=== PATIENT | male | born 1955 | race Caucasian/White ===

== ENCOUNTER 2017-09-04 06:48 | Observation (INO) | payer BC ==
[~2017-09-04] VITALS: Ht 185.4 cm; Wt 100.9 kg
--- NOTE | ~2017-09-04 | P ---
[facility] [place] [address] PROCEDURE REPORT Name: MARVIN OLIVEROS Room #: 204-P [facility] Monae M.R.#: [id number] Admission: 09/04/17 Attend Phys: Jose Riley MD Discharge: 09/05/17 Date of : 57 Report #: [id number] THIS REPORT FOR: //name// CC: [facility] physician/PCP Jose SMITH PREOPERATIVE DIAGNOSIS: Supraventricular tachycardia. POSTOPERATIVE DIAGNOSIS: Left-sided atrial tachycardia. PROCEDURES PERFORMED: 1. SVT ablation, CPT code 42032. 2. EP left atrial pacing and recording, CPT code 95856. 3. Intracardiac echocardiogram, CPT code 86774. 4. 3D mapping, 91899. 5. Second pathway ablation, CPT code 82157. 6. Arterial line placement, CPT code 00262. 7. Transseptal puncture, 88717. 8. Mapping of tachycardia, 83092. PROCEDURE: The patient underwent informed consent where we discussed the details of the procedure including the risks, which include, but are not limited to bleeding, vascular damage, cardiac perforation as well as stroke or IL. He understood these risks and is willing to proceed. As such, the patient was brought to the EP laboratory in a fasting and sedated state and prepped and draped in a sterile fashion. I injected lidocaine to the bilateral femoral groin regions and obtained access to the bilateral femoral veins and placed sheaths using the modified Seldinger technique. I placed an 8-Welsh and 6-Welsh short sheath in the right femoral vein and a 7-Welsh and 6-Welsh short sheath in the left femoral vein. Under fluoroscopy, I placed 3 quadripolar catheters at the HRA, His, and RV positions and a decapolar catheter in the coronary sinus. Of note, it was difficult to maintain the decapolar into the coronary sinus as it would flip out on occasion. At baseline, the patient was in sinus rhythm with a sinus cycle length of 710 milliseconds, GA interval 125 milliseconds, QRS duration 95 milliseconds, QT interval 380 milliseconds, AH interval 75 milliseconds, and HV interval of 370 milliseconds. With atrial burst pacing, SVT was induced with a tachycardia cycle length of 330 milliseconds and septal VA time of 200 milliseconds. I attempted to perform ventricular entrainment and the tachycardia would not entrain. In fact with ventricular pacing, I could easily dissociate from the V. This appeared to be an atrial tachycardia. Of note, with atrial burst pacing, the patient did have 2 episodes of atrial fibrillation that required 100 joules cardioversion times 2. I was able to easily re-induce the tachycardia. I then exchanged my HRA catheter for a 4-mm ablation catheter. I then performed [facility] [address] [place] [address] PROCEDURE REPORT Name: RENATOMARVIN CORONA Room #: 204-P AURELIA Licona MSrinivasanRSrinivasan#: [id number] Admission: 09/04/17 Attend Phys: Jose Riley MD Discharge: 09/05/17 Date of : 57 Report #: [id number] an activation map of the tachycardia. It appeared that the earliest site of atrial activation was within the coronary sinus. However, the earliest atrial signal compared to the surface P-wave was 20 milliseconds late. As such, it appeared that this may be a left-sided atrial tachycardia. I therefore obtained access to the right femoral artery times 1 and placed a 5-Welsh short sheath. I then obtained access to the left femoral vein again and placed a 9-Welsh short sheath and an ice catheter into the right atrium. I created a detailed 3D geometry using CARTO sound. The patient was then systemically heparinized and I performed a transseptal using an SL1 sheath and a Medrio needle. Once in the left atrium, I used a Lasso catheter to create an activation map. It appeared that the earliest site of activation was at 7-8 o'clock along the mitral annulus. I found the earliest site and performed ablation at 50 lee 55 degrees with my 4-mm ablation catheter. There was termination of the tachycardia, but I could re-induce the same tachycardia at a slower rate of 360 milliseconds. I therefore decided to look into the coronary sinus and based on the activation map, it appeared that the site of earliest atrial activity was within the coronary sinus and I performed ablation at 30 lee and 50 degrees. I performed a total of 2 ablation lesions and I could no longer induce the atrial tachycardia. Post-ablation, I performed additional testing and I induced a second atrial tachycardia, which had a distinct biphasic P-wave morphology in the inferior leads. I therefore created a detailed 3D activation map of this tachycardia and this appeared to be arising in the left atrium along the septum just inferior to the right superior pulmonary vein. Catheter manipulation at this site, which demonstrated the earliest activation would result in termination. I therefore performed ablation along this region where there was some evidence of fractionated potentials. I homogenized this zone. I then performed additional testing and this tachycardia was rendered noninducible. We performed additional EP study and I could no longer induce either of the atrial tachycardias. Post-ablation, the patient remained in sinus rhythm with a sinus cycle length of 745 milliseconds, GA interval 160 milliseconds, AH interval 97 milliseconds, and HV interval 360 milliseconds. As such, I pulled my transseptal to the right. I used intracardiac ultrasound to verify that there was no pericardial effusion as the patient had been heparinized prior to transseptal. Protamine was administered and once the ACT was within acceptable range, catheters and sheaths were pulled and hemostasis was obtained. The patient awoke neurologically and hemodynamically intact. No complications and no significant bleeding. CONCLUSIONS: 1. Successful ablation of an atrial tachycardia arising from the coronary sinus, rendered noninducible. 2. Successful ablation of an atrial tachycardia arising just inferior to the right superior pulmonary vein, rendered noninducible. 3. Normal SA aquilino function. 4. Normal AV aquilino function. [facility] [address] [place] [address] PROCEDURE REPORT Name: MARVIN OLIVEROS Room #: 204-P [facility]..#: [id number] Admission: 09/04/17 Attend Phys: Jose Riley MD Discharge: 09/05/17 Date of : 57 Report #: [id number] 5. Normal His-Purkinje function. 6. No other inducible arrhythmias. <ELECTRONICALLY SIGNED> By: Jose Riley MD 11/03/17 1752 1120 1415 Jose Riley MD /nt
--- NOTE | ~2017-09-04 | EKG ---
[address] [address] ELECTROCARDIOGRAM REPORT Name: MARVIN OLIVEROS Room #: REG [facility]#: [id number] Admission: 09/04/17 Attend Phys: Jose Riley MD Discharge: Date of : 57 Report #: [id number] THIS REPORT FOR: //name// [facility] Test Date: 2017-09-04 Test Time: 07:33:40 Pat Name: MARVIN OLIVEROS Department: Room: Gender: M Sample Hand: DIPESH : 1955 Requested By: Jose Riley Order Number: [id number] MD: Jose Riley Measurements Intervals [place] Rate: 60 P: 41 MA: 147 QRS: 55 QRSD: 98 T: 91 QT: 417 QTc: 417 Interpretive Statements Sinus rhythm Nonspecific T abnormalities, lateral leads Baseline wander in lead(s) V3 No previous ECG available for comparison Electronically Signed On 09-04-2017 8:11:21 PLAN NURSE by Jose Riley [email or web address] <ELECTRONICALLY SIGNED> By: Jose Riley MD 09/04/17 0811 2 2 oJse Riley MD /NYASIA
--- NOTE | ~2017-09-04 | D ---
[facility] [place] [address] DISCHARGE SUMMARY Name: MARVIN OLIVEROS Room #: 204-P [facility] Monae M.R.#: [id number] Admission: 09/04/17 Attend Phys: Jose Riley MD Discharge: 09/05/17 Date of : 57 Report #: [id number] THIS REPORT FOR: //name// CC: [facility] physician/PCP Jose SMITH DATE OF SERVICE: 09/05/2017 DISCHARGE DIAGNOSIS: Atrial tachycardia. PROCEDURES PERFORMED: SVT ablation. HISTORY OF PRESENT ILLNESS: The patient is a 62-year-old male with a history of supraventricular tachycardia who is here for EP study. On EP study, he had a very easily inducible atrial tachycardia that was mapped to the mitral annulus in the left atrium at around 7 o'clock. I was able to terminate the tachycardia from this side, but it continued to return. I then looked inside the coronary sinus and was able to ablate the arrhythmia from here as well. We then had another atrial tachycardia that was arising right below the right inferior pulmonary vein where catheter manipulation would result in termination. I ablated throughout this region and this was rendered noninducible as well. There were no intraprocedural complications. HOSPITAL COURSE: The patient was monitored in the PACU and then transferred to the CCU where he did well overnight. The following day, he denied any chest pain, shortness of breath, PND, orthopnea and had no groin discomfort. His vitals were stable. His physical exam revealed a regular cardiovascular exam. Lungs were clear bilaterally and his bilateral groins showed no major bruising or hematomas. Telemetry revealed that he remained in sinus rhythm. As such, he was deemed stable for discharge home with instructions to follow up with me in 3 months. I also discussed that some of these arrhythmias may be due to excessive alcohol use and that he should limit his alcohol utilization. He was also instructed to follow up with Dr. Montgomery who is his primary associate loan officer at [facility] and that he still needs to undergo his echocardiogram and stress testing as previously ordered. We will discontinue his diltiazem and I recommended continuing on an aspirin therapy. <ELECTRONICALLY SIGNED> By: Jose Riley MD 09/07/17 1643 0858 0924 Jose Riley MD /nt
[2017-09-04 07:22] VITALS: BP 134/73
[2017-09-04 07:38] LABS: ABSOLUTE NEUTROPHILS 4.4 thou/uL (1.4-8.2); EOSINOPHILS 3.1 % (0.0-3.0); HEMATOCRIT 42.4 % (42.0-52.0); HEMOGLOBIN 14.6 gm/dL (14.0-18.0); LYMPHOCYTES 26.7 % (24.0-44.0); MCH 29.6 pg (26.0-34.0); MCHC 34.5 g/dL (28.0-37.0); MCV 85.9 fL (80.0-100.0); MONOCYTES 8.3 % (1.0-8.0); PLATELET COUNT 267 thou/uL (150-400); POLYS 60.9 % (36.0-66.0); RBC 4.93 mil/uL (4.50-6.00); RDW 13.3 % (10.5-14.5); WBC 7.3 thou/uL (4.0-11.0)
[2017-09-04] MEDS ORDERED: ASPIR 8181 MG PO (07:44)
[2017-09-04] MEDS ORDERED: VITAMIN B-12500 MCG PO (07:45)
[2017-09-04] MEDS ORDERED: CARDIZEM CD180 MG PO (07:45)
[2017-09-04] MEDS ORDERED: FISH OIL 1,001000 M2 PO (07:46)
[2017-09-04] MEDS ORDERED: NIACIN 500 MG500 M1 PO (07:46)
[2017-09-04] MEDS ORDERED: PHOSLO667 MG PO (07:47)
[2017-09-04 07:49] LABS: CALCIUM 9.3 mg/dL (8.5-10.1); CREATININE 1.2 mg/dL (0.7-1.3); POTASSIUM 4.3 mmol/L (3.5-5.1)
[2017-09-04 07:54] LABS: ALBUMIN 4.1 g/dL (3.4-5.0); TOTAL BILIRUBIN 0.3 mg/dL (<0.1-1.0); TOTAL PROTEIN 7.6 g/dL (6.4-8.2)
[2017-09-04 08:02] LABS: APTT 25.2 Seconds (24.5-32.8)
[2017-09-05 00:16] VITALS: BP 150/84
[2017-09-05 04:05] VITALS: BP 159/86
[2017-09-05 09:13] VITALS: BP 143/88
[2017-09-05 09:53] VITALS: BP 143/88
== END 2017-09-05 10:42 | disposition home or self-care (01) ==
LOC: CATH 06:48 → 2N 20:10
PROVIDERS: Internal Medicine Cardiovascular Disease
DX: I47.1 Supraventricular tachycardia (principal)
CPT/HCPCS: 62110; 62900; 70005